=== PATIENT | male | born 1985 ===

== ENCOUNTER 2017-07-02 12:15 | Inpatient (IN) ==
[2017-07-02] MEDS ORDERED: SODIUM CHLORIDE 0.9% 1,000 ML IV STA (13:15)
[2017-07-02] MEDS ORDERED: cefOXitin 2,000 MG in SYRINGE 1 EACH IV ONE (13:16)
[2017-07-02] MEDS ORDERED: INSULIN LISPRO 100 UNIT/ML ONE (13:31)
[2017-07-02] MEDS ORDERED: INSULIN LISPRO 100 UNIT/ML SUBCUT STA (13:32)
[2017-07-02] MEDS ORDERED: SODIUM CHLORIDE 0.9% 0 ML IV ONE (13:33)
[2017-07-02] MEDS ORDERED: ACETAMINOPHEN 325 MG TABLET PO PRN (13:52)
[2017-07-02] MEDS ORDERED: MORPHINE 2 MG/1 ML SYRINGE IV PRN (13:52)
[2017-07-02] MEDS ORDERED: ONDANSETRON 4 MG/2 ML VIAL IV PRN (13:52)
[2017-07-02] MEDS ORDERED: DEXTROSE 50% 25 GM/50 ML VIAL IV PRN (13:56)
[2017-07-02] MEDS ORDERED: GLUCAGON 1 MG VIAL IM PRN (13:56)
[2017-07-02] MEDS: SODIUM CHLORIDE 0.9% 1,000 ML IV SCH ×2 (14:00→22:00)
[2017-07-02] MEDS ORDERED: LIDOCAINE 1%/EPI INJ 20 ML VIAL ONE (15:07)
[2017-07-02] MEDS ORDERED: TISSUE ADHESIVE 1 EACH APPLICATOR TOP ONE (15:07)
[2017-07-02] MEDS ORDERED: BUPIVACAINE 0.25% 50 ML VIAL ONE (15:07)
[2017-07-02] MEDS ORDERED: fentaNYL 100 MCG/2 ML VIAL ONE ×2 (17:14→18:08)
[2017-07-02] MEDS ORDERED: MIDAZOLAM 2 MG/2 ML VIAL ONE (17:14)
[2017-07-02] MEDS ORDERED: PROPOFOL 200 MG/20 ML VIAL IV ONE (18:07)
[2017-07-02] MEDS ORDERED: SEVOFLURANE 1 UNIT/15 MINUTE INH ONE (18:07)
[2017-07-02] MEDS ORDERED: DEXAMETHASONE 10 MG/1 ML VIAL ONE (18:08)
[2017-07-02] MEDS ORDERED: GLYCOPYRROLATE 0.4 MG/2 ML VIAL ONE (18:08)
[2017-07-02] MEDS ORDERED: NEOSTIGMINE 10 MG/10 ML VIAL ONE (18:08)
[2017-07-02] MEDS ORDERED: ONDANSETRON 4 MG/2 ML VIAL ONE (18:08)
[2017-07-02] MEDS ORDERED: KETOROLAC 30 MG/1 ML VIAL ONE (18:08)
[2017-07-02] MEDS ORDERED: ROCURONIUM 100 MG/10 ML VIAL IV ONE (18:09)
[2017-07-02] MEDS ORDERED: ACETAMINOPHEN 1,000 MG/100 ML VIAL IV ONE (18:09)
[2017-07-02] MEDS ORDERED: SUCCINYLCHOLINE 200 MG/10 ML VIAL ONE (18:09)
[2017-07-02] MEDS ORDERED: LACTATED RINGERS 1,000 ML IV ONE (18:10)
[2017-07-02 19:24] LABS: Lactic Acid 2.4 MMOL/L (0.4-2.0)
[2017-07-02] MEDS: INSULIN REGULAR 100 UNIT/ML SUBCUT SCH ×2 (19:57→21:46)
[2017-07-02] MEDS: cefOXitin 2,000 MG in SYRINGE 1 EACH IV SCH (21:47)
[2017-07-03 00:07] LABS: Apearance,Urine CLEAR (Clear); Bilirubin,Urine Negative (Negative); Blood, Urine Negative (Negative); Glucose,Urine (UA) >=500 mg/dL (Negative); Ketones,Urine 5 mg/dL (Negative); Nitrite,Urine Negative (Negative); Protein,Urine Negative; RBC,Urine <1 /HPF (0-4); Squamous Epithelial Cell,Urine Occasional /HPF (0-10); Urine Color Yellow (Yellow); Urine Specific Gravity 1.029 (1.001-1.035); Urine Urobilinogen < 2.0 EU/DL (0.2-1.0); WBC,Urine 11 /HPF (0-6)
[2017-07-03] MEDS: cefOXitin 2,000 MG in SYRINGE 1 EACH IV SCH ×4 (03:13→20:18)
[2017-07-03 05:45] LABS: Calcium 7.5 MG/DL (8.5-10.1); Osmolality,Calculated 289.5 MOS/KG (273-304); Potassium 3.8 MMOL/L (3.5-5.1)
[2017-07-03] MEDS: SODIUM CHLORIDE 0.9% 1,000 ML IV SCH (05:55)
[2017-07-03 06:11] LABS: Basophils % 0.2 % (0.0-0.8); Hematocrit 43.7 VOL% (42.0-52.0); Hemoglobin 15.4 GM/DL (14.0-18.0); Immature Granulocytes % 0.5 %; Immature Granulocytes Absolute 0.08 #; Lymphocytes # 0.7 10*3/uL (1.4-4.0); Lymphocytes % 4.3 % (21.2-54.2); Mean Corpuscular HGB Conc 35.2 GM/DL (32-36); Mean Corpuscular Hemoglobin 34 PG (27-34); Mean Corpuscular Volume 96.3 FL (87-102); Mean Platelet Volume 12.7 FL (9.6-12.0); Monocytes # 0.7 10*3/uL (0.11-0.8); Monocytes % 4.2 % (1.7-12.7); Neutrophils # 15.4 10*3/uL (1.4-7.4); Neutrophils % 90.8 % (38.7-73.9); Platelet Count 126 T/CUMM (130-400); Red Blood Count 4.54 MC/CUMM (3.8-5.5); Red Cell Distribution Width 11.7 % (9.3-17.3)
[2017-07-03 06:15] LABS: Band Neutrophils 5 % (0-10); Hypochromasia 1+; Lymphocytes 8 % (20-55); Platelet Estimate Decreased; Segmented Neutrophils 86 % (50-85); Total Cells Counted 100
[2017-07-03] MEDS: PANTOPRAZOLE 40 MG TABLET PO SCH (08:30)
[2017-07-03] MEDS: INSULIN REGULAR 100 UNIT/ML SUBCUT SCH (08:30)
[2017-07-03] MEDS ORDERED: GLUCAGON 1 MG VIAL IM PRN (09:17)
[2017-07-03] MEDS: ENOXAPARIN 30 MG/0.3 ML SYRINGE SUBCUT SCH (10:04)
[2017-07-03] MEDS: glipiZIDE 5 MG TABLET PO SCH (10:09)
[2017-07-03] MEDS: metFORMIN 500 MG TABLET PO SCH (10:09)
[2017-07-03] MEDS: INSULIN LISPRO 100 UNIT/ML SUBCUT SCH ×3 (12:25→21:28)
[2017-07-03] MEDS ORDERED: MAGNESIUM SULF RIDER 2 GM in PREMIX 1 EACH IV ONE (15:37)
[2017-07-03] MEDS ORDERED: MAGNESIUM SULF RIDER 2 GM in PREMIX 1 EACH IV PRN (15:38)
[2017-07-04] MEDS: cefOXitin 2,000 MG in SYRINGE 1 EACH IV SCH ×3 (02:18→14:14)
[2017-07-04 04:46] LABS: Basophils % 0.4 % (0.0-0.8); Eosinophils # 0.1 10*3/uL (0.0-0.87); Eosinophils % 0.7 % (0.00-10.9); Hematocrit 40.7 VOL% (42.0-52.0); Hemoglobin 14.2 GM/DL (14.0-18.0); Immature Granulocytes % 0.8 %; Immature Granulocytes Absolute 0.08 #; Lymphocytes # 1.1 10*3/uL (1.4-4.0); Mean Corpuscular HGB Conc 34.9 GM/DL (32-36); Mean Corpuscular Hemoglobin 34 PG (27-34); Mean Corpuscular Volume 96.2 FL (87-102); Mean Platelet Volume 12.5 FL (9.6-12.0); Monocytes # 0.6 10*3/uL (0.11-0.8); Monocytes % 6.4 % (1.7-12.7); Neutrophils % 80.7 % (38.7-73.9); Platelet Count 111 T/CUMM (130-400); Red Blood Count 4.23 MC/CUMM (3.8-5.5); Red Cell Distribution Width 11.4 % (9.3-17.3); White Blood Count 9.9 T/CUMM (4-12)
[2017-07-04] MEDS: INSULIN LISPRO 100 UNIT/ML SUBCUT SCH ×2 (09:10→12:28)
[2017-07-04] MEDS: glipiZIDE 5 MG TABLET PO SCH (09:10)
[2017-07-04] MEDS: PANTOPRAZOLE 40 MG TABLET PO SCH (09:10)
[2017-07-04] MEDS: metFORMIN 500 MG TABLET PO SCH (09:10)
[2017-07-04] MEDS: ENOXAPARIN 30 MG/0.3 ML SYRINGE SUBCUT SCH (09:10)
[2017-07-04 11:33] VITALS: BP 141/91
== END 2017-07-04 14:52 | disposition home or self-care (01) | DRG 343 ==
LOC: N.ED 12:15 → N.EDINP 13:49 → N.3E 19:17
PROVIDERS: ADMIT Surgery; ATTEND Surgery

== ENCOUNTER 2019-08-26 23:35 | Inpatient (IN) ==
[2019-08-26] MEDS ORDERED: PIPERACILLIN/TAZOBACTAM 3,375 MG in SODIUM CHLORIDE 0.9% 100 ML IV STA (23:55)
[2019-08-26] MEDS ORDERED: MORPHINE 4 MG/1 ML VIAL IM STA (23:55)
[2019-08-26] MEDS ORDERED: ONDANSETRON 4 MG/2 ML VIAL IV STA (23:55)
[2019-08-27 00:20] LABS: Basophils # 0.1 10*3/uL (0.0-0.2); Basophils % 0.7 % (0.0-0.8); Eosinophils # 0.1 10*3/uL (0.0-0.87); Eosinophils % 1.2 % (0.00-10.9); Hemoglobin 15.4 GM/DL (14.0-18.0); Immature Granulocytes % 0.8 %; Immature Granulocytes Absolute 0.09 #; Lymphocytes # 2.5 10*3/uL (1.4-4.0); Lymphocytes % 22.7 % (21.2-54.2); Mean Corpuscular Volume 96.9 FL (87-102); Mean Platelet Volume 10.4 FL (9.6-12.0); Monocytes % 7.5 % (1.7-12.7); Neutrophils % 67.1 % (38.7-73.9); Platelet Count 237 T/CUMM (130-400); Red Blood Count 4.54 MC/CUMM (3.8-5.5); Red Cell Distribution Width 11.2 % (9.3-17.3)
[2019-08-27 00:34] LABS: Albumin 3.1 G/DL (3.4-5.0); Bilirubin,Total 0.5 MG/DL (0.2-1.0); Calcium 8.3 MG/DL (8.5-10.1); Total Protein 7.3 G/DL (6.4-8.3)
[2019-08-27] MEDS ORDERED: MORPHINE 4 MG/1 ML VIAL IV STA (00:38)
[2019-08-27] MEDS ORDERED: INSULIN REGULAR 100 UNIT/ML SUBCUT STA (01:10)
[2019-08-27] MEDS ORDERED: DEXTROSE 50% 25 GM/50 ML SYRINGE IV PRN (02:45)
[2019-08-27] MEDS ORDERED: BISACODYL 5 MG TABLET PO PRN (02:45)
[2019-08-27] MEDS ORDERED: ACETAMINOPHEN 325 MG TABLET PO PRN (02:45)
[2019-08-27] MEDS ORDERED: GLUCAGON 1 MG VIAL IM PRN (02:45)
[2019-08-27] MEDS ORDERED: SODIUM CHLORIDE 0.9% 1,000 ML IV SCH (03:00)
[2019-08-27] MEDS ORDERED: VANCOMYCIN INJ 1,000 MG in SODIUM CHLORIDE 0.9% 250 ML IV ONE (05:00)
[2019-08-27 05:03] LABS: Basophils # 0.1 10*3/uL (0.0-0.2); Basophils % 0.5 % (0.0-0.8); Eosinophils # 0.1 10*3/uL (0.0-0.87); Eosinophils % 1.4 % (0.00-10.9); Hematocrit 42.9 VOL% (42.0-52.0); Hemoglobin 15.1 GM/DL (14.0-18.0); Immature Granulocytes % 0.6 %; Immature Granulocytes Absolute 0.06 #; Lymphocytes # 2.9 10*3/uL (1.4-4.0); Lymphocytes % 29.7 % (21.2-54.2); Mean Corpuscular HGB Conc 35.2 GM/DL (32-36); Mean Corpuscular Volume 96.4 FL (87-102); Mean Platelet Volume 10.6 FL (9.6-12.0); Monocytes % 9.5 % (1.7-12.7); Neutrophils % 58.3 % (38.7-73.9); Platelet Count 222 T/CUMM (130-400); Red Blood Count 4.45 MC/CUMM (3.8-5.5); Red Cell Distribution Width 11.3 % (9.3-17.3); White Blood Count 9.7 T/CUMM (4-12)
[2019-08-27 05:32] LABS: Calcium 8.1 MG/DL (8.5-10.1); Osmolality,Calculated 276.8 MOS/KG (273-304)
[2019-08-27] MEDS: INSULIN REGULAR 100 UNIT/ML SUBCUT SCH ×5 (06:31→20:31)
[2019-08-27 06:59] LABS: Apearance,Urine CLEAR (Clear); Bilirubin,Urine Negative (Negative); Blood, Urine Small mg/dL (Negative); Glucose,Urine (UA) >=500 mg/dL (Negative); Ketones,Urine 20 mg/dL (Negative); Nitrite,Urine Negative (Negative); Protein,Urine Negative; RBC,Urine 7 /HPF (0-4); Squamous Epithelial Cell,Urine Occasional /HPF (0-10); Urine Color Yellow (Yellow); Urine Specific Gravity > 1.060 (1.001-1.035); Urine Urobilinogen < 2.0 EU/DL (0.2-1.0); WBC,Urine 5 /HPF (0-6)
[2019-08-27] MEDS ORDERED: ceFAZolin 1,000 MG VIAL ONE (08:16)
[2019-08-27] MEDS ORDERED: ONDANSETRON 4 MG/2 ML VIAL IV PRN (08:26)
[2019-08-27] MEDS: PANTOPRAZOLE 40 MG TABLET PO SCH (08:37)
[2019-08-27] MEDS ORDERED: ceFAZolin 2,000 MG in SYRINGE 1 EACH IV ONE (08:47)
[2019-08-27] MEDS: HYDROmorphone 2 MG/1 ML VIAL IV PRN ×4 (08:55→09:20)
[2019-08-27] MEDS ORDERED: HYDROmorphone 2 MG/1 ML VIAL ONE (08:56)
[2019-08-27] MEDS ORDERED: ONDANSETRON 4 MG/2 ML VIAL ONE ×2 (08:56→08:57)
[2019-08-27] MEDS ORDERED: LIDOCAINE 2% 5 ML VIAL ONE (08:56)
[2019-08-27] MEDS ORDERED: propofoL 200 MG/20 ML VIAL IV ONE (08:56)
[2019-08-27] MEDS ORDERED: SEVOFLURANE 1 UNIT/15 MINUTE INH ONE (08:56)
[2019-08-27] MEDS ORDERED: MIDAZOLAM 2 MG/2 ML VIAL ONE (08:57)
[2019-08-27] MEDS ORDERED: fentaNYL 100 MCG/2 ML VIAL ONE (08:57)
[2019-08-27] MEDS ORDERED: DEXAMETHASONE 4 MG/1 ML VIAL ONE (08:57)
[2019-08-27 09:34] LABS: Apearance,Urine Slightly Hazy (Clear); Bacteria,Urine Occasional /HPF (Few); Bilirubin,Urine Negative (Negative); Blood, Urine Negative (Negative); Glucose,Urine (UA) >=500 mg/dL (Negative); Ketones,Urine 20 mg/dL (Negative); Mucus,Urine Occasional /LPF (Occasional); Nitrite,Urine Negative (Negative); Protein,Urine Negative; RBC,Urine 1 /HPF (0-4); Squamous Epithelial Cell,Urine Occasional /HPF (0-10); Urine Color Yellow (Yellow); Urine Specific Gravity 1.037 (1.001-1.035); Urine Urobilinogen < 2.0 EU/DL (0.2-1.0); WBC,Urine 1 /HPF (0-6)
[2019-08-27] MEDS: VANCOMYCIN INJ 1,500 MG in SODIUM CHLORIDE 0.9% 500 ML IV SCH ×2 (14:48→22:43)
[2019-08-27] MEDS: PIPERACILLIN/TAZOBACTAM 3,375 MG in SODIUM CHLORIDE 0.9% 100 ML IV SCH (16:40)
[2019-08-28] MEDS: PIPERACILLIN/TAZOBACTAM 3,375 MG in SODIUM CHLORIDE 0.9% 100 ML IV SCH ×3 (02:24→17:50)
[2019-08-28] MEDS: VANCOMYCIN INJ 1,500 MG in SODIUM CHLORIDE 0.9% 500 ML IV SCH (06:08)
[2019-08-28] MEDS ORDERED: ROPIVACAINE 0.5% 30 ML VIAL ONE (07:56)
[2019-08-28] MEDS ORDERED: MIDAZOLAM 2 MG/2 ML VIAL ONE (08:22)
[2019-08-28] MEDS ORDERED: ETOMIDATE 40 MG/20 ML VIAL IV ONE (08:22)
[2019-08-28] MEDS ORDERED: ONDANSETRON 4 MG/2 ML VIAL ONE (08:22)
[2019-08-28] MEDS ORDERED: LIDOCAINE 2% 5 ML VIAL ONE (08:22)
[2019-08-28] MEDS ORDERED: propofoL 200 MG/20 ML VIAL IV ONE (08:22)
[2019-08-28] MEDS ORDERED: fentaNYL 100 MCG/2 ML VIAL ONE (08:22)
[2019-08-28] MEDS ORDERED: SEVOFLURANE 1 UNIT/15 MINUTE INH ONE (08:22)
[2019-08-28] MEDS ORDERED: LACTATED RINGERS 1,000 ML IV ONE (08:22)
[2019-08-28] MEDS ORDERED: ONDANSETRON 4 MG/2 ML VIAL IV PRN (08:43)
[2019-08-28] MEDS ORDERED: HYDROmorphone 2 MG/1 ML VIAL IV PRN (08:43)
[2019-08-28] MEDS: INSULIN REGULAR 100 UNIT/ML SUBCUT SCH ×4 (09:26→23:56)
[2019-08-28] MEDS: PANTOPRAZOLE 40 MG TABLET PO SCH (09:50)
[2019-08-28] MEDS ORDERED: GLUCAGON 1 MG VIAL IM PRN (14:38)
[2019-08-28] MEDS ORDERED: DEXTROSE 50% 25 GM/50 ML VIAL IV PRN (14:38)
[2019-08-28] MEDS ORDERED: VANCOMYCIN INJ 1,500 MG in SODIUM CHLORIDE 0.9% 500 ML IV SCH (18:00)
[2019-08-28] MEDS ORDERED: INSULIN GLARGINE 100 UNIT/ML SUBCUT SCH (21:00)
[2019-08-29] MEDS: PIPERACILLIN/TAZOBACTAM 3,375 MG in SODIUM CHLORIDE 0.9% 100 ML IV SCH ×2 (02:43→13:19)
[2019-08-29 05:23] LABS: Basophils % 0.4 % (0.0-0.8); Eosinophils # 0.1 10*3/uL (0.0-0.87); Hematocrit 41.6 VOL% (42.0-52.0); Hemoglobin 14.3 GM/DL (14.0-18.0); Immature Granulocytes % 0.4 %; Immature Granulocytes Absolute 0.03 #; Lymphocytes # 2.8 10*3/uL (1.4-4.0); Mean Corpuscular HGB Conc 34.4 GM/DL (32-36); Mean Platelet Volume 10.2 FL (9.6-12.0); Monocytes % 7.7 % (1.7-12.7); Neutrophils % 53.5 % (38.7-73.9); Platelet Count 216 T/CUMM (130-400); Red Blood Count 4.29 MC/CUMM (3.8-5.5); Red Cell Distribution Width 11.3 % (9.3-17.3); White Blood Count 7.6 T/CUMM (4-12)
[2019-08-29 05:42] LABS: Osmolality,Calculated 275.7 MOS/KG (273-304)
[2019-08-29] MEDS ORDERED: MAGNESIUM SULF RIDER 4 GM in PREMIX 1 EACH IV ONE (06:45)
[2019-08-29] MEDS ORDERED: POTASSIUM CHLORIDE 20 MEQ TABLET PO ONE (06:46)
[2019-08-29] MEDS: POTASSIUM CHLORIDE RIDER 10 MEQ in PREMIX 1 EACH IV SCH ×2 (07:54→08:45)
[2019-08-29] MEDS: PANTOPRAZOLE 40 MG TABLET PO SCH (08:44)
[2019-08-29] MEDS: INSULIN REGULAR 100 UNIT/ML SUBCUT SCH ×2 (08:46→13:19)
[2019-08-29 11:49] VITALS: BP 141/82
== END 2019-08-29 13:50 | disposition home or self-care (01) | DRG 710 ==
LOC: EDUNIT# → EDBD → N.ED 23:35 → N.EDINP 23:35 → N.3E 08-27 03:50 → SUATTDRO 08-28 12:54
PROVIDERS: ADMIT Internal Medicine; ATTEND Internal Medicine